=== PATIENT | female | born 1950 | race Caucasian/White ===

== ENCOUNTER 2018-09-09 12:10 | Inpatient (IN) | payer MEDICARE ==
[~2018-09-09] VITALS: Ht 152.4 cm; Wt 62.6 kg
[2018-09-09] MEDS ORDERED: LEVALBUTEROL HCL SOLN NEBU 1.25 MG/3 ML NEB INH ONE (12:30)
[2018-09-09] MEDS ORDERED: IPRATROPIUM BROMIDE 0.02% 2.5 ML NEB NEB ONE (12:30)
--- NOTE | 2018-09-09 13:16 | Diagnostic Imaging Report ---
Examination: Single AP view of the chest. COMPARISON: None. INDICATION: Shortness of breath, sore throat IMPRESSION: 1. Lines and Tubes: None 2. Lungs are grossly clear. No consolidation or effusion. 3. Cardiomediastinal silhouette is normal. Pulmonary vasculature is normal. 4. No acute bony abnormalities. Signed by: Dr. Kang Gloria M.D. on 09/09/2018 1:13 PM
[2018-09-09 13:20] LABS: BASOPHILS % 0.3 % (0.0-1.0); EOSINOPHILS # (AUTO) 0.2 (0.0-0.4); EOSINOPHILS % 6.5 % (0.0-6.0); HEMATOCRIT 26.8 % (34.2-44.1); HEMOGLOBIN 7.9 g/dL (12.0-16.0); LYMPHOCYTES # (AUTO) 1.4 (1.0-3.2); LYMPHOCYTES % 39.6 % (18.0-39.1); MEAN CORPUSCULAR HEMOGLOBIN 20.8 pg (28-32); MEAN CORPUSCULAR HGB CONC 29.5 g/dL (31-35); MEAN CORPUSCULAR VOLUME 70.7 fL (81-99); MONOCYTES # (AUTO) 0.3 (0.2-0.8); MONOCYTES % 7.3 % (4.4-11.3); NEUTROPHILS # (AUTO) 1.6 (2.1-6.9); PLATELET COUNT 290 x10e3/uL (140-360); RED BLOOD COUNT 3.79 x10e6/uL (3.6-5.1); RED CELL DISTRIBUTION WIDTH 16.5 % (11.7-14.4)
[2018-09-09 13:24] LABS: INR 1.07; PROTHROMBIN TIME 14.4 seconds (11.9-14.5)
[2018-09-09 13:25] LABS: PARTIAL THROMBOPLASTIN TIME 31.9 seconds (23.8-35.5)
[2018-09-09 13:30] LABS: STREPTOCOCCUS GRP A ANTIGEN NEGATIVE (NEGATIVE)
[2018-09-09 13:31] LABS: ALANINE AMINOTRANSFERASE 13 IU/L (0-55); ALBUMIN 2.5 g/dL (3.5-5.0); ALBUMIN/GLOBULIN RATIO 0.5 (0.8-2.0); ALKALINE PHOSPHATASE 109 IU/L (40-150); ANION GAP 9.9 mmol/L (8-16); BLOOD UREA NITROGEN 18 mg/dL (7-26); BUN/CREATININE RATIO 26 (6-25); CALCIUM 8.8 mg/dL (8.4-10.2); CARBON DIOXIDE 24 mmol/L (22-29); CHLORIDE 109 mmol/L (98-107); CREATINE KINASE 27 IU/L (29-168); CREATININE, SERUM 0.68 mg/dL (0.57-1.11); EST GLOMERULAR FILTRATION RATE > 60 ML/MIN (60-); GLUCOSE 101 mg/dL (74-118); MAGNESIUM 1.6 MG/DL (1.3-2.1); POTASSIUM 3.9 mmol/L (3.5-5.1); SODIUM 139 mmol/L (136-145)
[2018-09-09 13:49] LABS: B-TYPE NATRIURETIC PEPTIDE2 41.7 pg/mL (0-100)
[2018-09-09] MEDS ORDERED: OMEPRAZOLE20 M1 PO (13:57)
[2018-09-09] MEDS ORDERED: ENBREL50 MG/1 ML IM (13:57)
[2018-09-09] MEDS ORDERED: MOTRIN800 MG PO (13:57)
[2018-09-09 14:11] LABS: INFLUENZAE A&B ANTIGEN (RAPID) POSITIVE FLU A&B (NEGATIVE)
[2018-09-09 14:16] LABS: CLARITY,URINE HAZY (CLEAR); COLOR,URINE YELLOW (YELLOW); KETONES,URINE NEGATIVE (NEGATIVE); LEUKOCYTE ESTERASE ,URINE TRACE (NEGATIVE); NITRITE,URINE POSITIVE (NEGATIVE); PROTEIN,URINE DIPSTICK NEGATIVE (NEGATIVE); URINE UROBILINOGEN 0.2 mg/dL (0.2 - 1)
[2018-09-09 14:17] LABS: BILIRUBIN,URINE NEGATIVE (NEGATIVE)
[2018-09-09 14:26] LABS: AMORPHOUS SEDIMENT,URINE FEW (FEW); BACTERIA,URINE MANY /HPF; EPITHELIAL CELLS,URINE MODERATE /LPF; MUCUS,URINE FEW (RARE); RBC,URINE 0-5 /HPF (0-5); TRANSITIONAL EPI CELLS,URINE FEW; WBC,URINE (MAN) 0-5 /HPF (0-5)
--- NOTE | 2018-09-09 15:19 | NUR ---
PT MOVED TO ROOM 4
[2018-09-09] MEDS ORDERED: ONDANSETRON HCL INJ 2MG/ML 2ML 2 MG/ML VIAL IV PRN (15:30)
[2018-09-09] MEDS: OSELTAMIVIR PHOSPHATE 75 MG CAP PO SCH ×2 (15:54→21:43)
[2018-09-09] MEDS ORDERED: CEFTRIAXONE SOD 1 GM/NS 50 ML 50 ML IV SCH (16:00)
--- OUTSIDE RECORDS SUMMARY | 2018-09-09 16:46 | XMS REPORT ---
Author Author [facility] Address Unknown Phone Unavailable Care Team Providers Care Care Clinician Name Role Phone Romana STERN Unavailable Unavailable MICHAEL LUU Unavailable Unavailable Problems This patient has no known problems. Allergies, Adverse Reactions, Alerts This patient has no known allergies or adverse reactions. Medications This patient has no known medications. Results Test Description Test Time Test Comments Text Results Atomic Results Result Comments CHEST SINGLE (PORTABLE) 2018-09-09 13:13:00 [place] [address] Patient Name: DAVID DUPREE MR #: [id number] : 1950 Age/Sex: 68/F Req #: [id number] Adm Physician: Ordered by: EMMETT STERN MD Report #: [id number] Location: ER Room/Bed: Procedure: [id number] DX/CHEST SINGLE (PORTABLE) Exam Date: 09/09/18 Exam Time: 1235 REPORT STATUS: Signed Examination: Single AP view of the chest. LUCA RISON: None. INDICATION: Shortness of breath, sore throat IMPRESSION: 1. Lines and Tubes: None 2. Lungs are grossly clear. No consolidation or effusion. 3. Cardiomediastinal silhouette is normal. Pulmonary vasculature is normal. 4. No acute bony abnormalities. Signed by: Dr. Magen Gloria M.D. on 09/09/2018 1:13 PM Dictated By: MAGEN GLORIA MD [id number] Transcribed By: JUAN LUIS on 09/09/18 1313 COPY TO: EMMETT STERN MD TISSUE EXAM 2018-01-21 08:18:00 Surgical Pathology Report Case: [id number] Authorizing Provider: Reynaldo Luu, Collected: 01/13/2018 0615 Ordering Location: [facility] Received: 01/13/2018 1230 SERVICES Pathologist: Leopoldo Rodriguez MD Specimen: Condyle,Right Knee PART A RIGHT KNEE CONDYLE, ARTHROPLASTY:OSTEOARTHRITIC CHANGES IN BONE AND CARTILAGE.REACTIVE SYNOVIAL TISSUE. Signing Pathologist Direct Phone Line: [phone] signed by Leopoldo Rodriguez MD on 01/21/2018 at 8:18 [id number] secondary osteoarthritis of right knee Right knee condyle The specimen is received in a fluidless container labeled with the patient's information and labeled "right knee condyle" and consists of multiple fragments of ching knee bone and soft tissue measuring 7 x 6 x 3 cm in aggregate. The bone fragments have distinct osteophyte formation with focal areas of eburnation.Section code: A1, A2, bone submitted for decalcification; A3, soft tissue and bone submitted for decalcification. CG/ew PERFORMED. BASIC METABOLIC PANEL 2018-01-14 06:05:00 SODIUM (BEAKER) (test ljbn=923) 136 meq/L 136-145 POTASSIUM (BEAKER) (test sagf=852) 4.6 meq/L 3.5-5.1 CHLORIDE (BEAKER) (test hytg=790) 108 meq/L 98-107 CO2 (BEAKER) (test ixkv=222) 23 meq/L 22-29 BLOOD UREA NITROGEN (BEAKER) (test gykz=210) 13 mg/dL 7-21 CREATININE (BEAKER) (test wyac=527) 0.62 mg/dL 0.57-1.25 GLUCOSE RANDOM (BEAKER) (test rspr=324) 120 mg/dL 70-105 CALCIUM (BEAKER) (test qdgw=479) 9.0 mg/dL 8.4-10.2 EGFR (BEAKER) (test ivwb=0047) 96 mL/min/1.73 sq m ESTIMATED GFR IS NOT ACCURATE CREATININE CLEARANCE IN PREDICTING GLOMERULAR FILTRATION RATE. ESTIMATED GFR IS NOT APPLICABLE FOR DIALYSIS PATIENTS. HEMOGLOBIN AND [id number] 05:41:00* Test Item Value Reference Range Comments HEMOGLOBIN (BEAKER) (test zuzh=553) 8.5 GM/DL 11.2-15.7 HEMATOCRIT (BEAKER) (test wnuy=950) 27.7 % 34.1-44.9 TISSUE [id number] 13:25:00Surgical Pathology Report Case: [id number] Authorizing Provider: Reynaldo Luu, Collected: 10/21/2016 08 Ordering Location: [facility] Received: 10/21/2016 0844 SERVICES Pathologist: Carlie Soto MD Specimen: Condyle,Left Knee [id number] osteoarthritis both kneesLeft knee condyleSpecimen is received in a fluidless container labeled with the patient's information and labeled "left knee condyle" and consists of multiple fragments of ching-pink knee bone and soft tissue measuring 7.0 x 4.5 x 2.0 cm in aggregate. The bone fragments have distinct osteophyte formation with focal areas of eburnation.Section code: A1, A2, bone submitted for decalcification; A3, soft tissue and bone submitted for decalcification. CG/ewPerformed.A. KNEE, LEFT CONDYLE,TOTAL KNEE REPLACEMENT: - DEGENERATIVE JOINT DISEASE - SYNOVIUM WITH REACTIVE CHANGES - SUGGESTIVE OF OSTEOPENIA - NEGATIVE FOR MALIGNANCY Signing Pathologist Direct Phone Line: [phone] signed by Carlie Soto MD on 10/27/2016 at 1:25 PMHEMOGLOBIN AND HEMATOCRIT 2016-10-24 08:23:00* Test Item Value Reference Range Comments HEMOGLOBIN (BEAKER) (test dgng=907) 8.4 GM/DL 12.0-15.0 HEMATOCRIT (BEAKER) (test auvt=533) 24.6 % 36.0-45.0 BASIC METABOLIC [id number] 06:49:00* Test Item Value Reference Range Comments SODIUM (BEAKER) (test dpwr=879) 141 meq/L 136-145 POTASSIUM (BEAKER) (test zkuy=745) 3.5 meq/L 3.5-5.1 CHLORIDE (BEAKER) (test qmso=813) 107 meq/L 98-107 CO2 (BEAKER) (test brta=720) 26 meq/L 22-29 BLOOD UREA NITROGEN (BEAKER) (test rppg=136) 10 mg/dL 7-21 CREATININE (BEAKER) (test adjb=542) 0.66 mg/dL 0.57-1.25 GLUCOSE RANDOM (BEAKER) (test stft=914) 82 mg/dL 70-105 CALCIUM (BEAKER) (test hsxj=017) 8.4 mg/dL 8.4-10.2 EGFR (BEAKER) (test uoni=7082) 90 mL/min/1.73 sq m ESTIMATED GFR IS NOT ACCURATE CREATININE CLEARANCE IN PREDICTING GLOMERULAR FILTRATION RATE. ESTIMATED GFR IS NOT APPLICABLE FOR DIALYSIS PATIENTS. BASIC METABOLIC [id number] 04:56:00* Test Item Value Reference Range Comments SODIUM (BEAKER) (test acfm=377) 137 meq/L 136-145 POTASSIUM (BEAKER) (test vyfj=776) 3.7 meq/L 3.5-5.1 CHLORIDE (BEAKER) (test omtv=849) 109 meq/L 98-107 CO2 (BEAKER) (test rgwg=954) 21 meq/L 22-29 BLOOD UREA NITROGEN (BEAKER) (test fwol=451) 12 mg/dL 7-21 CREATININE (BEAKER) (test mwwz=654) 0.74 mg/dL 0.57-1.25 GLUCOSE RANDOM (BEAKER) (test nxva=723) 92 mg/dL 70-105 CALCIUM (BEAKER) (test swwq=308) 7.7 mg/dL 8.4-10.2 EGFR (BEAKER) (test dcpn=1678) 79 mL/min/1.73 sq m ESTIMATED GFR IS NOT ACCURATE CREATININE CLEARANCE IN PREDICTING GLOMERULAR FILTRATION RATE. ESTIMATED GFR IS NOT APPLICABLE FOR DIALYSIS PATIENTS. HEMOGLOBIN AND [id number] 04:34:00* Test Item Value Reference Range Comments HEMOGLOBIN (BEAKER) (test fxgq=529) 8.1 GM/DL 12.0-15.0 HEMATOCRIT (BEAKER) (test upkt=263) 24.4 % 36.0-45.0 HEMOGLOBIN AND [id number] 06:25:00* Test Item Value Reference Range Comments HEMOGLOBIN (BEAKER) (test mgfd=705) 8.6 GM/DL 12.0-15.0 HEMATOCRIT (BEAKER) (test jdow=080) 26.4 % 36.0-45.0 BASIC METABOLIC [id number] 05:53:00* Test Item Value Reference Range Comments SODIUM (BEAKER) (test voch=911) 139 meq/L 136-145 POTASSIUM (BEAKER) (test azab=901) 4.1 meq/L 3.5-5.1 CHLORIDE (BEAKER) (test dkpt=607) 111 meq/L 98-107 CO2 (BEAKER) (test kehc=658) 21 meq/L 22-29 BLOOD UREA NITROGEN (BEAKER) (test oeqi=328) 11 mg/dL 7-21 CREATININE (BEAKER) (test urmu=584) 0.68 mg/dL 0.57-1.25 GLUCOSE RANDOM (BEAKER) (test vkzi=360) 132 mg/dL 70-105 CALCIUM (BEAKER) (test vmtl=747) 8.5 mg/dL 8.4-10.2 EGFR (BEAKER) (test zrbm=0352) 87 mL/min/1.73 sq m ESTIMATED GFR IS NOT ACCURATE CREATININE CLEARANCE IN PREDICTING GLOMERULAR FILTRATION RATE. ESTIMATED GFR IS NOT APPLICABLE FOR DIALYSIS PATIENTS. HGB/HCT (H&H) - STAT [id number] 06:40:00* Test Item Value Reference Range Comments HEMOGLOBIN (BEAKER) (test gozq=052) 10.5 g/dL 12.0-15.0 HEMATOCRIT (BEAKER) (test rzho=026) 31.0 % 36.0-45.0
--- OUTSIDE RECORDS SUMMARY | 2018-09-09 16:46 | XMS REPORT | Clinical Summary ---
Author Author DINORA [employer] PingMD Organization [facility] [employer] Address Unknown Phone Unavailable Care Team Providers Care Magnet Placer Name Role Phone GillianRomaine Gee PCP Ross Gerard Steven Unavailable Allergies Comments Active Allergy Reactions Severity Noted Date fainted Codeine 09/28/2016 Morphine Nausea And 09/28/2016 Vomiting Parkinson symptoms Metoclopramide Hcl 09/28/2016 Medications End Date Status Medication Sig Dispensed Refills Start Date Active omeprazole (PRILOSEC) 20 Take 20 mg by 0 MG capsule mouth 2 (two) times daily . Active ferrous sulfate 325 (65 Take 325 mg 0 FE) MG tablet by mouth daily with breakfast. Active ALPHA LIPOIC ACID ORAL Take by mouth 0 daily. Active ascorbate calcium Take by mouth 0 (VITAMIN C ORAL) daily. Active cycloSPORINE (RESTASIS) Place 1 drop 0 0.05 % ophthalmic into both emulsion eyes 2 (two) times daily. Active calcium carbonate Take by 0 (CALCIUM 600 ORAL) mouth. Active ergocalciferol, vitamin Take by mouth 0 D2, (VITAMIN D2 ORAL) daily. Active COPPER ORAL Take by mouth 0 daily. Active b complex vitamins Take 1 0 capsule capsule by mouth daily. Active folic acid 0.8 mg Cap Take by mouth 0 daily. Active multivitamin per tablet Take 1 tablet 0 by mouth daily. Active Saccharomyces boulardii Take by mouth 0 (PROBIOTIC, S.BOULARDII, daily. ORAL) Active triamcinolone (NASACORT) 2 sprays by 0 55 mcg nasal inhaler Nasal route as needed for Rhinitis. Active pyridoxine, vitamin B6, Take 100 mg 0 (B-6) 100 MG tablet by mouth daily. 01/14/2018 Discontinued etanercept (ENBREL Inject 0 SURECLICK) 50 mg/mL (0.98 subcutaneousl mL) PnIj y once a week. 01/14/2018 Discontinued ibuprofen (ADVIL,MOTRIN) Take 800 mg 0 800 MG tablet by mouth every 6 (six) hours as needed for Pain. 01/14/2018 Discontinued NIACIN, NIACINAMIDE, ORAL Take by mouth 0 daily. 02/14/2018 aspirin 325 MG EC tablet Take 1 tablet 30 tablet 0 (325 mg 8 total) by mouth daily for 30 days. 01/26/2018 HYDROcodone-acetaminophen Take 1 tablet 30 tablet 0 (NORCO 10-325) 10-325 mg by mouth 8 per tablet every 4 (four) hours as needed for up to 10 days. Max Daily Amount: 6 tablets Active Problems Problem Noted Date S/P knee replacement 01/14/2018 Arthritis of right knee 01/13/2018 DJD (degenerative joint disease) of knee 01/13/2018 Arthritis 10/21/2016 Left knee DJD 10/21/2016 Encounters Care Team Description Date Type Specialty Reynaldo Luu MD ARTHROPLASTY,KNEE UNILATERAL 01/13/2018 Surgery Jacey Márquez MD 01/13/2018 Anesthesia Event Reynaldo Luu MD 01/13/2018 [facility] General Internal Medicine - Encounter 01/18/2018 Reynaldo uLu MD Resource, Oqmt Preadmit Phone 01/12/2018 Hospital Pre-Admission Testing Encounter Mandy Nichols PA 12/28/2017 Orders Only after 09/08/2017 Social History Date Tobacco Use Types Packs/Day Years Used Quit: 09/23/2016 Former Smoker Smokeless Tobacco: Never Used Tobacco Cessation: Counseling Given: No Comments: quit 2016 Alcohol Use Drinks/Week oz/Week Comments No Sex Assigned at Date Recorded Not on file Industry Job Start Date Occupation Not on file Not on file Not on file Travel End Travel History Travel Start No recent travel history available. Last Filed Vital Signs Time Taken Vital Sign Reading 01/18/2018 12:12 PM CDT Blood Pressure 119/59 01/18/2018 12:12 PM CDT Pulse 98 01/18/2018 12:12 PM CDT Temperature 37.2 C (99 F) 01/18/2018 12:12 PM CDT Respiratory Rate 17 01/18/2018 12:12 PM CDT Oxygen Saturation 93% - Inhaled Oxygen - Concentration 01/13/2018 6:57 AM CDT Weight 69.3 kg (152 lb 12.8 oz) 01/13/2018 6:57 AM CDT Height 152.4 cm (5') 01/13/2018 6:57 AM CDT Body Mass Index 29.84 Plan of Treatment Not on file Implants Device Identifier Shelf Expiration Date Model / Serial / Lot Implanted Type Area Manufactur er 07/14/2018 6194-1-001 / / [id number] Cement Bone Smplx Hv 6194-1-001 - Cement/Alexandru Left: Knee LEORA:ST [id number] ler/Adhesi STEFFANY Implanted: Qty: 1 on 10/21/2016 by Reynaldo Bell MD 2019 6194-1-001 / / [id number] Cement Bone Smplx 6194-1-001 - Cement/Alexandru Right: Knee LEORA:ST [id number] ler/Adhesi STEFFANY Implanted: Qty: 1 on 01/13/2018 by Reynaldo Bell MD 06/22/2021 5510-F-301 / / [id number] Comp Femoral #3 L 5510-F-301 - Joints Left: Knee LEORA:ST [id number] STEFFANY Implanted: Qty: 1 on 10/21/2016 by Reynaldo Cortés MD 07/02/2021 5550-L-339 / / [id number] Patella Tri Asymmetric 33x9mm Joints Left: Knee LEORA:ST 5550-L-339 - [id number] STEFFANY Implanted: Qty: 1 on 10/21/2016 by Reynaldo Cortés MD 04/02/2021 5521-B-200 / / [id number] Baseplt Tri Ts 2 5521-B-200 - Joints Left: Knee LEORA:ST [id number] STEFFANY Implanted: Qty: 1 on 10/21/2016 by Reynaldo Cortés MD 07/09/2021 5530-G-209 / / [id number] Insrt Tib Tri Crx Sz2 9mm Joints Left: Knee LEORA:ST 5530-G-209 - [id number] STEFFANY Implanted: Qty: 1 on 10/21/2016 by Reynaldo Cortés MD 04/11/2022 5530-G-309 / / [id number] Insrt Tib Tri Crx 9mm 5530-G-309 - Joints Right: Knee LEORA:ST [id number] STEFFANY Implanted: Qty: 1 on 01/13/2018 by Reynaldo Cortés MD 09/21/2022 5551-L-320 / / [id number] Patella Triathlon Asymmetric Joints Right: Knee LEORA:ST 5551-L-320 - [id number] STEFFANY Implanted: Qty: 1 on 01/13/2018 by Reynaldo Cortés MD 11/10/2022 5521-B-300 / / [id number] Baseplt Triathlon Ts Sz3 5521-B-300 Joints Right: Knee LEORA:ST - [id number] STEFFANY Implanted: Qty: 1 on 01/13/2018 by Reynaldo Cortés MD 08/23/2022 5510-F-302 / / [id number] Comp Fem Cr Gilberto No.3 R 5510-F-302 - Joints Right: Knee LEORA:ST [id number] STEFFANY Implanted: Qty: 1 on 01/13/2018 by Reynaldo Cortés MD Procedures Comments Procedure Name Priority Date/Time Associated Diagnosis TRANSFUSION SERVICE 01/14/2018 REPORT - SCAN 6:00 PM CDT HEMOGLOBIN AND HEMATOCRIT Routine 01/14/2018 4:54 AM CDT BASIC METABOLIC PANEL (7) Routine 01/14/2018 4:54 AM CDT ARTHROPLASTY,KNEE 01/13/2018 Other secondary UNILATERAL 11:00 AM CDT osteoarthritis of right knee Special Needs (SPINAL/EP IDURAL WITH ADDUCTOR CANAL BLOCK, LEORA TRIATHLON) ANESTHESIA PERIPHERAL Routine 01/13/2018 BLOCK 9:47 AM CDT ANESTHESIA SPINAL BLOCK Routine 01/13/2018 9:45 AM CDT TYPE AND SCREEN, Routine 01/13/2018 AUTOMATED 8:07 AM CDT TISSUE EXAM AP Routine 01/13/2018 6:15 AM CDT after 09/08/2017 Results * TRANSFUSION SERVICE REPORT - SCAN (01/14/2018 6:00 PM CDT) Narrative Performed At * Hemoglobin and hematocrit (01/14/2018 4:54 AM CDT) Hemoglobin 8.5 (L) 11.2 - 15.7 GM/DL [facility] Hematocrit 27.7 (L) 34.1 - 44.9 % [facility] Specimen Blood - Arm, Right Performing Organization Address [facility] Phone Number [facility] [address] [place] [address] [facility] * Basic Metabolic Panel (01/14/2018 4:54 AM CDT) Sodium 136 136 - 145 meq/L [facility] Potassium 4.6 3.5 - 5.1 meq/L [facility] Chloride 108 (H) 98 - 107 meq/L [facility] CO2 23 22 - 29 meq/L [facility] BUN 13 7 - 21 mg/dL [facility] Creatinine 0.62 0.57 - 1.25 mg/dL [facility] Glucose 120 (H) 70 - 105 mg/dL [facility] Calcium 9.0 8.4 - 10.2 mg/dL [facility] EGFR 96Comment: ESTIMATED GFR IS mL/min/1.73 sq m [facility] NOT ACCURATE CREATININE [facility] CLEARANCE IN PREDICTING GLOMERULAR FILTRATION RATE. ESTIMATED GFR IS NOT APPLICABLE FOR DIALYSIS PATIENTS. Specimen Blood - Arm, Right Performing Organization Address [facility] Phone Number [facility] [address] [place] [address] [facility] * ANESTHESIA PERIPHERAL BLOCK (01/13/2018 9:47 AM CDT) Narrative Performed At Ana Luisa Puente MD 01/13/20189:47 AM Peripheral Block Patient location during procedure: pre-op Start time: 01/13/2018 9:33 AM End time: 01/13/2018 9:38 AM Reason for block: procedure for pain, at surgeon's request and post-op pain management Staffing Anesthesiologist: PIEDAD FUENTES Resident/OPERATIONS VICE PRESIDENT: ANA LUISA PUENTE Performed by: resident/OPERATIONS VICE PRESIDENT Preanesthetic Checklist Completed: patient identified, site marked, surgical consent, pre-op evaluation, timeout performed, IV checked, risks and benefits discussed and monitors and equipment checked Peripheral Block Patient position: supine Prep: ChloraPrep Patient monitoring: heart rate, sales incentive analyst and continuous pulse ox Block type: Adductor canal Laterality: right Injection technique: catheter Procedures: nerve stimulator Local infiltration: ropivicaine Infiltration strength: 0.5 % Needle Needle type: Tuohy Needle gauge: 17 G Needle length: 100 mm Catheter type: open end Catheter size: 19 G Assessment Injection assessment: negative aspiration for heme, no paresthesia on injection, incremental injection and local visualized surrounding nerve on ultrasound Paresthesia pain: none Heart rate change: no Slow fractionated injection: yes Additional Notes Time out performed and procedural site identified and marked. Neural structures were identified with ultrasound. After injection of topical local anesthetic, tuohy needle advanced and positioned under ultrasound guidance. After negative aspiration, local anesthetic visualized surrounding nerve on ultrasound. Catheter was advanced without complications. Catheter taped and secured to skin. No acute complications. Patient tolerated well.No pain on injection or throughout procedure. Dr. Fuentes present throughout. Ana Luisa Puente MD [facility] Anesthesiology PGY-4 Procedure Note Ana Luisa Puente MD - 01/13/2018 9:45 AM CDT Peripheral Block Patient location during procedure: pre-op Start time: 01/13/2018 9:33 AM End time: 01/13/2018 9:38 AM Reason for block: procedure for pain, at surgeon's request and post-op pain management Staffing Anesthesiologist: PIEDAD FUENTES Resident/OPERATIONS VICE PRESIDENT: ANA LUISA PUENTE Performed by: resident/OPERATIONS VICE PRESIDENT Preanesthetic Checklist Completed: patient identified, site marked, surgical consent, pre-op evaluation, timeout performed, IV checked, risks and benefits discussed and monitors and equipment checked Peripheral Block Patient position: supine Prep: ChloraPrep Patient monitoring: heart rate, sales incentive analyst and continuous pulse ox Block type: Adductor canal Laterality: right Injection technique: catheter Procedures: nerve stimulator Local infiltration: ropivicaine Infiltration strength: 0.5 % Needle Needle type: Tuohy Needle gauge: 17 G Needle length: 100 mm Catheter type: open end Catheter size: 19 G Assessment Injection assessment: negative aspiration for heme, no paresthesia on injection, incremental injection and local visualized surrounding nerve on ultrasound Paresthesia pain: none Heart rate change: no Slow fractionated injection: yes Additional Notes Time out performed and procedural site identified and marked. Neural structures were identified with ultrasound. After injection of topical local anesthetic, tuohy needle advanced and positioned under ultrasound guidance. After negative aspiration, local anesthetic visualized surrounding nerve on ultrasound. Catheter was advanced without complications. Catheter taped and secured to skin. No acute complications. Patient tolerated well. No pain on injection or throughout procedure. Dr. Fuentes present throughout. Ana Luisa Puente MD [facility] Anesthesiology PGY-4 * ANESTHESIA SPINAL BLOCK (01/13/2018 9:45 AM CDT) Narrative Performed At Ana Luisa Puente MD 01/13/20189:45 AM Spinal Block Patient location during procedure: pre-op Start time: 01/13/2018 9:21 AM End time: 01/13/2018 9:29 AM Reason for block: procedure for pain, at surgeon's request and post-op pain management Staffing Anesthesiologist: PIEDAD FUENTES Resident/OPERATIONS VICE PRESIDENT: ANA LUISA PUENTE Performed by: resident/OPERATIONS VICE PRESIDENT Preanesthetic Checklist Completed: patient identified, site marked, surgical consent, pre-op evaluation, timeout performed, IV checked, risks and benefits discussed and monitors and equipment checked Spinal Block Patient position: sitting Prep: Betadine Patient monitoring: heart rate, sales incentive analyst and continuous pulse ox Approach: midline Location: L3-4 Injection technique: single-shot Needle Needle type: luis. Needle gauge: 25 G Needle length: 10 cm Catheter type: open end Assessment Sensory level: T10 Events: cerebrospinal fluid Additional Notes Time out performed and procedural site identified. After injection of topical local anesthetic, introducer needle was advanced and positioned. Spinal needle advanced over introducer without complication, +csf return. Local anesthetic injected into intrathecal space. +csf return after injection. Spinal needle and introducer removed. No acute complications. Patient tolerated well.No pain on injection or throughout procedure. Dr Fuentes present throughout. Ana Luisa Puente MD [facility] Anesthesiology PGY-4 Procedure Note Ana Luisa Puente MD - 01/13/2018 9:44 AM CDT Spinal Block Patient location during procedure: pre-op Start time: 01/13/2018 9:21 AM End time: 01/13/2018 9:29 AM Reason for block: procedure for pain, at surgeon's request and post-op pain management Staffing Anesthesiologist: PIEDAD FUENTES Resident/OPERATIONS VICE PRESIDENT: ANA LUISA PUENTE Performed by: resident/OPERATIONS VICE PRESIDENT Preanesthetic Checklist Completed: patient identified, site marked, surgical consent, pre-op evaluation, timeout performed, IV checked, risks and benefits discussed and monitors and equipment checked Spinal Block Patient position: sitting Prep: Betadine Patient monitoring: heart rate, sales incentive analyst and continuous pulse ox Approach: midline Location: L3-4 Injection technique: single-shot Needle Needle type: luis. Needle gauge: 25 G Needle length: 10 cm Catheter type: open end Assessment Sensory level: T10 Events: cerebrospinal fluid Additional Notes Time out performed and procedural site identified. After injection of topical local anesthetic, introducer needle was advanced and positioned. Spinal needle advanced over introducer without complication, +csf return. Local anesthetic injected into intrathecal space. +csf return after injection. Spinal needle and introducer removed. No acute complications. Patient tolerated well. No pain on injection or throughout procedure. Dr Fuentes present throughout. Ana Luisa Puente MD [facility] Anesthesiology PGY-4 * Type and screen, automated (01/13/2018 8:07 AM CDT) ABO/RH AUTOMATED (BEAKER) O POSITIVE [facility] Ab Scrn NEGATIVE [facility] Specimen Blood Performing Organization Address City/State/Zipcode Phone Number [facility] [address] [place] [address] [facility] * Tissue Exam (01/13/2018 6:15 AM CDT) Case Report Surgical Pathology [facility] Report [facility] Case: [id number] Authorizing Provider:Reynaldo Luu,Collected: 01/13/2018 0615 Ordering Location: [facility] PERIOPERATIVE Received: 01/13/2018 1230 SERVICES Pathologist: Leopoldo Rodriguez MD Specimen:Condyle,Right Knee DIAGNOSIS PART A RIGHT KNEE CONDYLE, [facility] ARTHROPLASTY: [facility] OSTEOARTHRITIC CHANGES IN BONE AND CARTILAGE. REACTIVE SYNOVIAL TISSUE. Signing Pathologist Direct Phone Line: [phone] CPT Code(s) 65122, 87393 [facility] CLINICAL HISTORY Other secondary osteoarthritis [facility] of right knee [facility] SPECIMEN SOURCE Right knee condyle [facility] GROSS DESCRIPTION The specimen is received in a [facility] fluidless container labeled [facility] with the patient's information and labeled "right knee condyle" and consists of multiple fragments of ching knee bone and soft tissue measuring 7 x 6 x 3 cm in aggregate. The bone fragments have distinct osteophyte formation with focal areas of eburnation. Section code: A1, A2, bone submitted for decalcification; A3, soft tissue and bone submitted for decalcification. CG/ew MICROSCOPIC DESCRIPTION PERFORMED. [facility] Specimen Tissue - Condyle,Right Knee Performing Organization Address City/State/Zipcode Phone Number [address] [address] [facility] after 09/08/2017 Insurance Payer Benefit Subscriber ID Type Phone Address Plan / Group [facility] xxxxxxxxxxx MEDICARE ADV Advance Directives For more information, please contact: [address] [address] Date Inactivated Comments Code Status Date Activated 01/18/2018 5:12 PM Full Code 01/14/2018 6:41 AM This code status was determined by: Patient 01/13/2018 9:40 PM Full Code 01/13/2018 7:38 AM This code status was determined by: Patient 10/21/2016 12:10 PM Full Code 10/21/2016 5:27 AM This code status was determined by: Patient
[2018-09-09 18:05] VITALS: BP 124/76
[2018-09-09] MEDS: AZITHROMYCIN 500MG/NS 250 ML 250 ML IV SCH (18:55)
--- NOTE | 2018-09-09 19:00 | NUR ---
BS reporting completed with morning nurse. Pt alert to name. Lying in be HOB 45 degrees. Denies pain at this time. Call rivera within reach. Will continue to monitor.
[2018-09-09 20:00] VITALS: BP 150/83
--- NOTE | 2018-09-09 20:00 | NUR ---
Initial nursing assessment completed. Pt orient to person, place, time, and situation. VSS. Denies or SOB pain at this time. Lungs sounds wheezing, diminished. c/o "not feeling well". Afebrile, T96.6, O2 @2L via nc, sat 99%. BM x1 09/08/18. No acute distress noted. Oriented to room. Call rivera within reach. Bed low and locked. Will continue to monitor.
[2018-09-09 20:56] VITALS: BP 150/83
--- NOTE | 2018-09-09 22:50 | NUR ---
Dry coughing with x2 vomiting clear. c/o sore, dry throat. c/o mild SOB. Denies chest pain at this time. RT called for breathing treatment. Dr. Gates ordered Tessalon Perles 200mg PO now and BID, Cepacol lozenge every 2 hrs prn. Will continue to monitor. Call rivera within reach.
[2018-09-09] MEDS ORDERED: BENZONATATE 100 MG CAP PO ONE (23:00)
[2018-09-09] MEDS: CEPACOL SORE THROAT LOZENGES PO PRN (23:30)
[2018-09-10] VITALS (7 sets, daily range): BP systolic 104–146; BP diastolic 52–83
[2018-09-10 00:35] LABS: CREATINE KINASE MB 0.8 ng/mL (0-5.0)
[2018-09-10 06:33] LABS: BASOPHILS % 0.2 % (0.0-1.0); EOSINOPHILS # (AUTO) 0.2 (0.0-0.4); HEMATOCRIT 25.2 % (34.2-44.1); HEMOGLOBIN 7.5 g/dL (12.0-16.0); LYMPHOCYTES # (AUTO) 1.8 (1.0-3.2); LYMPHOCYTES % 41.9 % (18.0-39.1); MEAN CORPUSCULAR HEMOGLOBIN 20.7 pg (28-32); MEAN CORPUSCULAR HGB CONC 29.8 g/dL (31-35); MEAN CORPUSCULAR VOLUME 69.6 fL (81-99); MONOCYTES # (AUTO) 0.3 (0.2-0.8); MONOCYTES % 7.4 % (4.4-11.3); NEUTROPHILS % 46.3 % (38.7-80.0); PLATELET COUNT 279 x10e3/uL (140-360); RED BLOOD COUNT 3.62 x10e6/uL (3.6-5.1); RED CELL DISTRIBUTION WIDTH 16.3 % (11.7-14.4)
[2018-09-10 06:56] LABS: ALANINE AMINOTRANSFERASE 12 IU/L (0-55); ALBUMIN 2.5 g/dL (3.5-5.0); ALBUMIN/GLOBULIN RATIO 0.5 (0.8-2.0); ALKALINE PHOSPHATASE 100 IU/L (40-150); ANION GAP 9.8 mmol/L (8-16); BLOOD UREA NITROGEN 12 mg/dL (7-26); BUN/CREATININE RATIO 21 (6-25); CALCIUM 8.9 mg/dL (8.4-10.2); CARBON DIOXIDE 25 mmol/L (22-29); CHLORIDE 105 mmol/L (98-107); CHOL/HDL RATIO 3.1 (3.0-3.6); CHOLESTEROL 77 MD/DL (0-199); CREATININE, SERUM 0.57 mg/dL (0.57-1.11); EST GLOMERULAR FILTRATION RATE > 60 ML/MIN (60-); GLUCOSE 92 mg/dL (74-118); HDL CHOLESTEROL 25 MG/DL (40-60); LDL CHOLESTEROL 33 MG/DL (60-130); POTASSIUM 3.8 mmol/L (3.5-5.1); SODIUM 136 mmol/L (136-145); TRIGLYCERIDES 93 MG/DL (0-149)
--- NOTE | 2018-09-10 07:30 | NUR ---
pt up in bed sleeping ,o2 [address]l nc in place,
[2018-09-10] MEDS: OSELTAMIVIR PHOSPHATE 75 MG CAP PO SCH ×2 (08:07→21:28)
[2018-09-10] MEDS: BENZONATATE 100 MG CAP PO SCH ×2 (08:07→16:52)
[2018-09-10] MEDS: AZITHROMYCIN 500MG/NS 250 ML 250 ML IV SCH (08:07)
[2018-09-10] MEDS ORDERED: LACTATED RINGER'S 1,000 ML IV ONE (11:30)
[2018-09-10] MEDS: IBUPROFEN 600 MG TAB PO SCH ×2 (12:13→16:52)
--- NOTE | 2018-09-10 12:15 | NUR ---
dr coffman here orders written
--- NOTE | 2018-09-10 12:59 | Diagnostic Imaging Report ---
EXAMINATION: CHEST SINGLE (PORTABLE) INDICATION: ^COUGH ^[id number] ^1230 COMPARISON: 09/09/2018 FINDINGS: AP view TUBES and LINES: None. LUNGS: Lungs are well inflated. There is no evidence of pneumonia or pulmonary edema. PLEURA: No pleural effusion or pneumothorax. HEART AND MEDIASTINUM: The cardiomediastinal silhouette is unremarkable. BONES AND SOFT TISSUES: No acute osseous lesion. Soft tissues are unremarkable. UPPER ABDOMEN: No free air under the diaphragm. IMPRESSION: No acute thoracic abnormality. Signed by: Dr. Garcia Andrews MD on 09/10/2018 12:55 PM
--- NOTE | 2018-09-10 17:26 | NUR ---
PT UP IN BED,NO DISTRESS NTOED,PAIN LEVEL 3
[2018-09-10] MEDS: IPRATROPIUM BROMIDE 0.02% 2.5 ML NEB NEB PRN (18:40)
[2018-09-10] MEDS: LEVALBUTEROL HCL SOLN NEBU 0.63 MG/3 ML NEB INH PRN (18:40)
--- NOTE | 2018-09-10 19:00 | NUR ---
Completed nursing report with morning nurse. Pt alert to name. Walking to bathroom, steady gait. Denies pain at this time. Call rivera within reach. Will continue to monitor.
[2018-09-11] VITALS: BP 119/57
[2018-09-11] MEDS: CEPACOL SORE THROAT LOZENGES PO PRN ×2 (02:29→08:00)
[2018-09-11 04:00] VITALS: BP 127/60
[2018-09-11] MEDS: IPRATROPIUM BROMIDE 0.02% 2.5 ML NEB NEB PRN (07:00)
[2018-09-11] MEDS: LEVALBUTEROL HCL SOLN NEBU 0.63 MG/3 ML NEB INH PRN (07:00)
--- NOTE | 2018-09-11 07:30 | NUR ---
PT UP IN BED ,C/O WHEEZING CALLED RESP. FOR TX.PAIN LEVEL 3
[2018-09-11 07:54] LABS: BASOPHILS % 0.2 % (0.0-1.0); EOSINOPHILS # (AUTO) 0.2 (0.0-0.4); EOSINOPHILS % 5.4 % (0.0-6.0); HEMATOCRIT 24.7 % (34.2-44.1); HEMOGLOBIN 7.5 g/dL (12.0-16.0); LYMPHOCYTES # (AUTO) 1.8 (1.0-3.2); LYMPHOCYTES % 42.9 % (18.0-39.1); MEAN CORPUSCULAR HEMOGLOBIN 21.2 pg (28-32); MEAN CORPUSCULAR HGB CONC 30.4 g/dL (31-35); MEAN CORPUSCULAR VOLUME 69.8 fL (81-99); MONOCYTES # (AUTO) 0.3 (0.2-0.8); NEUTROPHILS # (AUTO) 1.9 (2.1-6.9); NEUTROPHILS % 44.5 % (38.7-80.0); PLATELET COUNT 280 x10e3/uL (140-360); RED BLOOD COUNT 3.54 x10e6/uL (3.6-5.1); RED CELL DISTRIBUTION WIDTH 16.3 % (11.7-14.4)
[2018-09-11 08:00] VITALS: BP 129/65
[2018-09-11 08:16] LABS: % IRON SATURATION 5 % (15-50); ANION GAP 8.7 mmol/L (8-16); BLOOD UREA NITROGEN 11 mg/dL (7-26); BUN/CREATININE RATIO 20 (6-25); CALCIUM 8.9 mg/dL (8.4-10.2); CARBON DIOXIDE 26 mmol/L (22-29); CHLORIDE 106 mmol/L (98-107); CREATININE, SERUM 0.55 mg/dL (0.57-1.11); EST GLOMERULAR FILTRATION RATE > 60 ML/MIN (60-); GLUCOSE 98 mg/dL (74-118); IRON 14 ug/dL (50-170); POTASSIUM 3.7 mmol/L (3.5-5.1); SODIUM 137 mmol/L (136-145); TOTAL IRON BINDING CAPACITY 298 ug/dL (261-478); TRANSFERRIN 213 mg/dL (180-382)
[2018-09-11] MEDS: PANTOPRAZOLE SOD 40 MG TABEC PO SCH (08:23)
[2018-09-11] MEDS: BENZONATATE 100 MG CAP PO SCH ×2 (08:24→17:01)
[2018-09-11] MEDS: IBUPROFEN 600 MG TAB PO SCH ×3 (08:24→17:01)
[2018-09-11] MEDS: OSELTAMIVIR PHOSPHATE 75 MG CAP PO SCH ×2 (08:24→20:48)
[2018-09-11] MEDS: AZITHROMYCIN 500MG/NS 250 ML 250 ML IV SCH (08:29)
[2018-09-11 12:00] VITALS: BP 125/64
--- NOTE | 2018-09-11 13:00 | NUR ---
DR PALOMARES HERE,ORDERS WRITTTEN
[2018-09-11] MEDS ORDERED: SODIUM CHLORIDE 0.9% 250ML 250 ML ONE (13:10)
[2018-09-11] MEDS: CEFTRIAXONE SOD 1 GM/NS 50 ML 50 ML IV SCH (13:22)
[2018-09-11 16:00] VITALS: BP 124/60
[2018-09-11] MEDS: IRON SUCROSE 100 MG in SODIUM CHLORIDE 0.9% 100 ML 100 ML IV SCH (16:00)
--- NOTE | 2018-09-11 17:11 | NUR ---
PT IN BED RESTING ,PAIN LEVEL 3,
[2018-09-11 20:00] VITALS: BP 113/66
[2018-09-12] VITALS: BP 140/63
[2018-09-12 07:49] VITALS: BP 117/55
[2018-09-12] MEDS: BENZONATATE 100 MG CAP PO SCH (08:52)
[2018-09-12] MEDS: IBUPROFEN 400 MG TAB PO SCH ×2 (08:52→12:06)
[2018-09-12] MEDS: OSELTAMIVIR PHOSPHATE 75 MG CAP PO SCH (08:52)
[2018-09-12] MEDS: PANTOPRAZOLE SOD 40 MG TABEC PO SCH (08:52)
[2018-09-12 09:00] VITALS: BP 117/55
[2018-09-12 11:28] VITALS: BP 126/59
[2018-09-12] MEDS ORDERED: IBUPROFEN 400 MG TAB PO SCH (12:00)
[2018-09-12] MEDS: CEFTRIAXONE SOD 1 GM/NS 50 ML 50 ML IV SCH (12:06)
[2018-09-12] MEDS: IRON SUCROSE 100 MG in SODIUM CHLORIDE 0.9% 100 ML 100 ML IV SCH (13:42)
[2018-09-12] MEDS ORDERED: TAMIFLU75 MG PO (15:29)
[2018-09-12] MEDS ORDERED: TESSALON PERLE100 MG PO (15:30)
[2018-09-12 16:06] VITALS: BP 114/58
--- NOTE | 2018-09-12 18:21 | NUR ---
PATIENT DISCHARGE HOME- PATIENT OFF THE UNIT AT 1648 PER WHEELCHAIR ACCOMPANIED BY PCT TO THE FRONT LOBBY. PATIENT IN STABLE CONDITION WITH NO S/S OF RESPIRATORY DISTRESS. NO PAIN VOICED. IV REMOVED WITH TIP INTACT. DISCHARGE TEACHING, INSTRUCTIONS, AND MEDICATIONS GIVEN TO THE PATIENT. ALL PERSONAL ITEMS WERE TAKEN WITH THE PATIENT.
--- NOTE | 2018-09-13 05:00 | Discharge Summary ---
PRIMARY CARE DOCTOR: Dr. Eulogio French. FINAL DIAGNOSIS: Influenza bronchitis. SECONDARY DIAGNOSES: 1. Asymptomatic Escherichia coli bacteriuria. 2. Iron deficiency anemia. 3. 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 4. Immunocompromised status due to being on Enbrel. DRILLING RIG OPERATOR: None. PROCEDURES AND STUDIES PERFORMED: None. HISTORY: Per H and P. HOSPITAL COURSE: The patient was started on Tamiflu. The patient was also on Rocephin and azithromycin empirically. However given her repeat chest x-ray is still normal, azithromycin was stopped. The patient was continued on IV Rocephin empirically for her asymptomatic Escherichia coli bacteriuria. The patient also received intravenous iron for her iron deficiency anemia. Her hemoglobin remained stable at 7.5. This is likely due to the high dose Motrin she takes at home. The patient was continued on her Protonix. At this time, the patient is feeling better. The patient will go home on two more days of Tamiflu to complete a five day course. Tessalon Perles will be given as well as needed for her cough. The patient was seen and examined today. It took 31 minutes total to discharge this patient. FOLLOWUP: The patient will follow up with her PCP in a week. CONDITION ON DISCHARGE: Improved. DISCHARGE MEDICATIONS: Please see medication reconciliation form. MD NADEGE Rose/CHANDRA /[id number] cc: [facility]
== END 2018-09-12 16:48 | disposition home or self-care (01) | DRG 153 ==
LOC: ER 12:10 → ERHOLD 15:31 → MED/SURG3 17:47
PROVIDERS: ADMIT Internal Medicine; ATTEND Internal Medicine
DX: J11.1 Influenza due to unidentified influenza virus with other respiratory manifestations (principal); J40 Bronchitis, not specified as acute or chronic; M06.9 Rheumatoid arthritis, unspecified; D50.9 Iron deficiency anemia, unspecified; Z79.899 Other long term (current) drug therapy; R82.71 Bacteriuria; B96.20 Unspecified Escherichia coli [E. coli] as the cause of diseases classified elsewhere
CPT/HCPCS: 36415; 71045; 80048; 80053; 80061; 81001; 82550; 82553; 83518; 83540; 83605; 83735; 83880; 84466; 84484; 85025; 85610; 85730; 86850; 86900; 87040; 87070; 87086; 87186; 87400; 93005; 94640; 99284; J0456; J0696; J1756; J7050; J7121